=== PATIENT | female | born 2000 | race Caucasian/White ===

== ENCOUNTER 2021-04-30 09:42 | Inpatient (IN) | payer OTHER ==
[~2021-04-30] VITALS: Ht 175.3 cm; Wt 64.5 kg
--- NOTE | 2021-04-30 10:27 | NUR ---
SE RECIBE PTE ALERTA, ORIENTADA EN YRN MONE ESFERAS. PTE REFIERE DOLOR EN COSTADO DERECHO QUE SE IRRADIA EN PELVIS DESDE HACEN 4 SPARROW.
--- NOTE | 2021-04-30 11:40 | NUR ---
EVALUADA PTE. POR DRA. OSUNA. SE ORIENTA SOBRE TRATAMIENTO Y MEDICAMENTOS LOS CUALES SE ADM. ANITA ORDEN MEDICA, MUESTRAS TOMADAS Y SE ENVIAN AL LABORATORIO. SE HACEN AREGLOS PARA SONOGRAMA Y SE LIBRADO PTE. EN ALAN CON BARRANDAS ELEVADAS ACOMPANADA DE FAMILIAR.
--- NOTE | 2021-04-30 15:14 | NUR ---
SE LE ENTREGA CONTRASTE PO A PTE.
--- NOTE | 2021-04-30 15:30 | NUR ---
SE RECIBE PTE ALERTA Y ORIENTADA X3, SE RECIBE PTE CANALIZADA EN BRAZO DOMINICK AREA MICHAEL DE EDEMA Y DE ENROJECIMIENTO.PTE EN ESPERA DE LAN DE CONTRASTES PARA CT PO. SE EDUCA DE LA LAN DEL MISMO Y SE EUDCA SOBRE TRATAMIENTO MEDICO.
[2021-05-06] MEDS ORDERED: AMOX1TAB5 PO (11:01)
[2021-05-06] MEDS ORDERED: FLAGYL500MG PO (11:01)
== END 2021-05-06 11:28 | disposition home or self-care (01) | DRG 392 ==
LOC: EMR PED 09:42 → PED 22:38
PROVIDERS: ADMIT Emergency Medicine Pediatric Emergency Medicine; ATTEND Emergency Medicine Pediatric Emergency Medicine
PROC: BW21YZZ Computerized Tomography (CT Scan) of Abdomen and Pelvis using Other Contrast (ICD-10-PCS; principal; 2021-04-30)
DX: K52.89 Other specified noninfective gastroenteritis and colitis (principal); E86.0 Dehydration; E87.8 Other disorders of electrolyte and fluid balance, not elsewhere classified; R10.30 Lower abdominal pain, unspecified; R63.0 Anorexia; Z20.822 Contact with and (suspected) exposure to COVID-19